=== PATIENT | female | born 1970 | race American Indian/Alaskan Native ===

== ENCOUNTER 2018-10-14 09:53 | Emergency (ER) | payer BC, OTHER ==
[2018-10-14 10:57] LABS: CHLORIDE,CL 103 mmol/L (98-107); SODIUM,NA 138 mmol/L (136-145)
--- NOTE | 2018-10-14 11:30 | EDM.PDOC ---
ED HPI GENERAL MEDICAL PROBLEM - General Chief Complaint: General Stated Complaint: INFECTION IN MOUTH Time Seen by Provider: 10/14/18 10:07 Source of Information: Reports: Patient History Limitations: Reports: No Limitations - History of Present Illness INITIAL COMMENTS - FREE TEXT/NARRATIVE: HISTORY AND PHYSICAL: History of present illness: Patient is a 48-year-old female who presents to the ED today with concern of dental abscess that has not gone away despite antibiotics and tooth removal. Patient states that she had her tooth pulled a few days ago and was given clindamycin antibiotic which she has been taking appropriately. Patient states she has noticed the swelling has increased and become more painful and has not improved despite pulling of the tooth and antibiotics. Patient states she sees a dentist in [place] and had the tooth pulled on Monday. Patient rates her discomfort a 6 out of 10. Patient denies fever, chills, chest pain, shortness of breath, or cough. Denies headache, neck stiff ness, change in vision, syncope, or near syncope. Denies nausea, vomiting, abdominal pain, diarrhea, constipation, or dysuria. Has not noted any blood in urine or stool. Patient has been eating and drinking appropriately. Review of systems: As per history of present illness and below otherwise all systems reviewed and negative. Past medical history: As per history of present illness and as reviewed below otherwise noncontributory. Surgical history: As per history of present illness and as reviewed below otherwise noncontributory. Social history: See social history for further information Family history: As per history of present illness and as reviewed below otherwise noncontributory. Physical exam: General: Patient is alert, oriented, and in no acute distress. Patient sitting comfortably on exam table. HEENT: Atraumatic, normocephalic, pupils equal and reactive bilaterally, negative for conjunctival pallor or scleral icterus, mucous membranes moist, TMs normal bilaterally, throat clear, neck supple, nontender, trachea midline. No drooling or trismus noted. No meningeal signs. No hot potato voice noted. Patient is missing tooth #31. The mandible adjacent to this tooth is severely painful to palpation and is edematous and erythematous. Patient hesitant to open mouth so exam limited due to pain. Generalized poor dentition. Lungs: Clear to auscultation, breath sounds equal bilaterally, chest nontender. Heart: S1S2, regular rate and rhythm without overt murmur Abdomen: Soft, nondistended, nontender. Negative for masses or hepatosplenomegaly. Negative for costovertebral tenderness. Pelvis: Stable nontender. Genitourinary: Deferred. Rectal: Deferred. Skin: Intact, warm, dry. No lesions or rashes noted. Extremities: Atraumatic, negative for cords or calf pain. Neurovascular unremarkable. Neuro: Awake, alert, oriented. Cranial nerves II through XII unremarkable. Cerebellum unremarkable. Motor and sensory unremarkable throughout. Exam nonfocal. Notes: Dr. Anderson directly involved in patient care. Patient has only had a few doses of Clindamycin since tooth removal. Because of this, will not switch antibiotic at this time as she has not had much time for antibiotic to work yet. Discussed the importance for follow-up with primary care provider for repeat lab work. Voices understanding and is agreeable to plan of care. Denies any further questions or concerns at this time. Diagnostics: CBC, CMP, UA, Uhcg, maxillofacial CT Therapeutics: insulin, rocephin, dental balls Prescription: None Impression: Dental abscess h/o type 2 diabetes with elevated glucose Anemia, unspecified Plan: 1. Continue your priorly prescribed medication as written. 2. Tylenol and/or ibuprofen as directed and as needed for pain management. 3. "Tooth Balls" have been given to you; apply along the gumline every 2-3 hours as needed. Do not swallow these; external use only. 4. Follow-up with a dentist for definitive care. Follow up with her primary care provider for repeat lab work as discussed. Return to the ED as needed and as discussed. Definitive disposition and diagnosis as appropriate pending reevaluation and review of above. right jaw Pain Score (Numeric/FACES): 7 - Related Data Allergies Allergy/AdvReac Type Severity Reaction Status Date / Time No Known Allergies Allergy Verified 10/14/18 10:09 Home Meds: Home Meds Bipolar Medication 1 tab PO ASDIRECTED 10/14/18 [History] Clindamycin HCl 1 tab PO ASDIRECTED 10/14/18 [History] Past Medical History HEENT History: Reports: None Cardiovascular History: Reports: None Respiratory History: Reports: None Gastrointestinal History: Reports: None Genitourinary History: Reports: None [employer]GER History: Reports: None Musculoskeletal History: Reports: None Neurological History: Reports: None Psychiatric History: Reports: Bipolar Endocrine/Metabolic History: Reports: Diabetes, Type II Hematologic History: Reports: None Immunologic History: Reports: None Oncologic (Cancer) History: Reports: None Dermatologic History: Reports: None - Past Surgical History Head Surgeries/Procedures: Reports: None HEENT Surgical History: Reports: None Cardiovascular Surgical History: Reports: None Respiratory Surgical History: Reports: None GI Surgical History: Reports: None Female Surgical History: Reports: Tubal Ligation Endocrine Surgical History: Reports: None Neurological Surgical History: Reports: None Musculoskeletal Surgical History: Reports: None Oncologic Surgical History: Reports: None Dermatological Surgical History: Reports: None Social & Family History - Family History Family Medical History: Noncontributory - Tobacco Use Smoking Status *Q: Current Every Day Smoker Years of Tobacco use: 20 Packs/Tins Daily: 1 - Caffeine Use Caffeine Use: Reports: Soda - Recreational Drug Use Recreational Drug Use: No ED ROS GENERAL - Review of Systems Review Of Systems: ROS reveals no pertinent complaints other than HPI. ED EXAM, GENERAL - Physical Exam Exam: See Below (See dictation) Course - Vital Signs Last Recorded V/S: Last Vital Signs Temp 36.4 C 10/14/18 10:07 Pulse 118 H 10/14/18 10:07 Resp 18 10/14/18 10:07 BP 141/96 H 10/14/18 10:07 Pulse Ox 98 10/14/18 10:07 - Orders/Labs/Meds Labs: Laboratory Tests 10/14/18 10/14/18 10/14/18 Range/Units 10:27 10:27 11:00 WBC 11.61 H (4.0-11.0) K/uL RBC 5.31 (4.30-5.90) M/uL Hgb 10.3 L (12.0-16.0) g/dL Hct 35.9 L (36.0-46.0) % MCV 67.6 L (80.0-98.0) fL MCH 19.4 L (27.0-32.0) pg MCHC 28.7 L (31.0-37.0) g/dL RDW Std Deviation 41.3 (28.0-62.0) fl RDW Coeff of Sofia 17 H (11.0-15.0) % Plt Count 262 (150-400) K/uL MPV 10.00 (7.40-12.00) fL Neut % (Auto) 80.8 H (48.0-80.0) % Lymph % (Auto) 11.8 L (16.0-40.0) % Blount % (Auto) 6.2 (0.0-15.0) % Eos % (Auto) 0.9 (0.0-7.0) % Baso % (Auto) 0.3 (0.0-1.5) % Neut # (Auto) 9.4 H (1.4-5.7) K/uL Lymph # (Auto) 1.4 (0.6-2.4) K/uL Blount # (Auto) 0.7 (0.0-0.8) K/uL Eos # (Auto) 0.1 (0.0-0.7) K/uL Baso # (Auto) 0.0 (0.0-0.1) K/uL Nucleated RBC % 0.0 /100WBC Nucleated RBCs # 0 K/uL Sodium 138 (136-145) mmol/L Potassium 3.7 (3.5-5.1) mmol/L Chloride 103 (98-107) mmol/L Carbon Dioxide 20.5 L (21.0-32.0) mmol/L BUN 10 (7.0-18.0) mg/dL Creatinine 0.6 (0.6-1.0) mg/dL Est Cr Clr Drug Dosing 93.82 mL/min Estimated GFR (MDRD) > 60.0 ml/min Glucose 300 H (74-106) mg/dL Calcium 9.6 (8.5-10.1) mg/dL Total Bilirubin 0.7 (0.2-1.0) mg/dL AST 5 L (15-37) IU/L ALT 15 (14-63) IU/L Alkaline Phosphatase 118 H (46-116) U/L Total Protein 8.4 H (6.4-8.2) g/dL Albumin 3.5 (3.4-5.0) g/dL Globulin 4.9 H (2.6-4.0) g/dL Albumin/Globulin Ratio 0.7 L (0.9-1.6) Urine Color YELLOW Urine Appearance CLEAR Urine pH 6.0 (5.0-8.0) Ur Specific [place] >= 1.030 (1.001-1.035) Urine Protein 100 H (NEGATIVE) mg/dL Urine Glucose (UA) 500 H (NEGATIVE) mg/dL Urine Ketones >=80 (NEGATIVE) mg/dL Urine Occult Blood LARGE H (NEGATIVE) Urine Nitrite NEGATIVE (NEGATIVE) Urine Bilirubin SMALL H (NEGATIVE) Urine Ictotest NEGATIVE Urine Urobilinogen 0.2 (<2.0) EU/dL Ur Leukocyte Esterase NEGATIVE (NEGATIVE) Urine RBC 4-6 (0-2/HPF) Urine WBC 2-4 (0-5/HPF) Ur Epithelial Cells MODERATE (NONE-FEW) Urine Bacteria FEW (NEGATIVE) Urine HCG, Qual (NEGATIVE) 10/14/18 Range/Units 11:00 WBC (4.0-11.0) K/uL RBC (4.30-5.90) M/uL Hgb (12.0-16.0) g/dL Hct (36.0-46.0) % MCV (80.0-98.0) fL MCH (27.0-32.0) pg MCHC (31.0-37.0) g/dL RDW Std Deviation (28.0-62.0) fl RDW Coeff of Sofia (11.0-15.0) % Plt Count (150-400) K/uL MPV (7.40-12.00) fL Neut % (Auto) (48.0-80.0) % Lymph % (Auto) (16.0-40.0) % Blount % (Auto) (0.0-15.0) % Eos % (Auto) (0.0-7.0) % Baso % (Auto) (0.0-1.5) % Neut # (Auto) (1.4-5.7) K/uL Lymph # (Auto) (0.6-2.4) K/uL Blount # (Auto) (0.0-0.8) K/uL Eos # (Auto) (0.0-0.7) K/uL Baso # (Auto) (0.0-0.1) K/uL Nucleated RBC % /100WBC Nucleated RBCs # K/uL Sodium (136-145) mmol/L Potassium (3.5-5.1) mmol/L Chloride (98-107) mmol/L Carbon Dioxide (21.0-32.0) mmol/L BUN (7.0-18.0) mg/dL Creatinine (0.6-1.0) mg/dL Est Cr Clr Drug Dosing mL/min Estimated GFR (MDRD) ml/min Glucose (74-106) mg/dL Calcium (8.5-10.1) mg/dL Total Bilirubin (0.2-1.0) mg/dL AST (15-37) IU/L ALT (14-63) IU/L Alkaline Phosphatase (46-116) U/L Total Protein (6.4-8.2) g/dL Albumin (3.4-5.0) g/dL Globulin (2.6-4.0) g/dL Albumin/Globulin Ratio (0.9-1.6) Urine Color Urine Appearance Urine pH (5.0-8.0) Ur Specific [place] (1.001-1.035) Urine Protein (NEGATIVE) mg/dL Urine Glucose (UA) (NEGATIVE) mg/dL Urine Ketones (NEGATIVE) mg/dL Urine Occult Blood (NEGATIVE) Urine Nitrite (NEGATIVE) Urine Bilirubin (NEGATIVE) Urine Ictotest Urine Urobilinogen (<2.0) EU/dL Ur Leukocyte Esterase (NEGATIVE) Urine RBC (0-2/HPF) Urine WBC (0-5/HPF) Ur Epithelial Cells (NONE-FEW) Urine Bacteria (NEGATIVE) Urine HCG, Qual NEGATIVE (NEGATIVE) Meds: Medications Discontinued Medications Generic Name Dose Route Start Last Admin Trade Name Leatha PRN Reason Stop Dose Admin Ceftriaxone Sodium 1 gm 10/14/18 11:34 10/14/18 11:56 Rocephin IM 10/14/18 11:35 1 gm ONETIME ONE Administration Lidocaine HCl Confirm 10/14/18 11:44 10/14/18 11:57 Xylocaine-Mpf 1% Administered 10/14/18 11:45 2.1 mls/hr Dose Administration 2 mls @ as directed .ROUTE .STK-MED ONE Insulin Human Regular 4 unit 10/14/18 11:33 10/14/18 11:56 Novolin R SUBCUT 10/14/18 11:34 4 unit ONETIME ONE Administration Protocol Iopamidol 75 ml 10/14/18 11:36 10/14/18 11:37 Isovue Multipack-370 (76%) IVPUSH 10/14/18 11:37 75 ml ONETIME STA Administration Departure - Departure Time of Disposition: 12:07 Disposition: Home, Self-Care 01 Clinical Impression: Dental abscess, History of diabetes mellitus, type II Anemia Qualifiers: Anemia type: unspecified type Qualified Code(s): D64.9 - Anemia, unspecified - Discharge Information Referrals: PCP,Unknown [Primary Care Provider] - Forms: ED Department Discharge Additional Instructions: The following information is given to patients seen in the emergency department who are being discharged to home. This information is to outline your options for follow-up care. We provide all patients seen in our emergency department with a follow-up referral. The need for follow-up, as well as the timing and circumstances, are variable depending upon the specifics of your emergency department visit. If you don't have a primary care physician on staff, we will provide you with a referral. We always advise you to contact your personal physician following an emergency department visit to inform them of the circumstance of the visit and for follow-up with them and/or the need for any referrals to a consulting specialist. The emergency department will also refer you to a specialist when appropriate. This referral assures that you have the opportunity for follow-up care with a specialist. All of these measure are taken in an effort to provide you with optimal care, which includes your follow-up. Under all circumstances we always encourage you to contact your private physician who remains a resource for coordinating your care. When calling for follow-up care, please make the office aware that this follow-up is from your recent emergency room visit. If for any reason you are refused follow-up, please contact the [facility] Emergency Department at and asked to speak to the emergency department charge nurse. [facility] [address] [place] [id number] [address] 1. Continue your priorly prescribed medication as written. 2. Tylenol and/or ibuprofen as directed and as needed for pain management. 3. "Tooth Balls" have been given to you; apply along the gumline every 2-3 hours as needed. Do not swallow these; external use only. 4. Follow-up with a dentist for definitive care. Follow up with her primary care provider for repeat lab work as discussed. Return to the ED as needed and as discussed.
[2018-10-14] MEDS ORDERED: Insulin Regular, Human 100 Units/ML 10 ML Vial SUBCUT ONE (11:33)
[2018-10-14] MEDS ORDERED: cefTRIAXone 1 GM Vial IM ONE (11:34)
[2018-10-14] MEDS ORDERED: Iopamidol 755 MG/ML 500 ML Multipack Bottle IVPUSH STA (11:36)
[2018-10-14] MEDS ORDERED: Lidocaine 1% 2 ML ONE (11:44)
--- NOTE | 2018-10-14 12:00 | CT ---
INDICATION: Right facial pain and swelling. TECHNIQUE: CT maxillofacial with contrast (75 cc of Isovue 370). COMPARISON: None FINDINGS: Changes of recent extraction of a right posterior mandibular tooth (tooth number 30) are present with soft tissue swelling noted adjacent to this site both laterally and inferiorly. No loculated fluid collection is seen to suggest abscess. Edematous changes are noted lateral to the mandible are best seen on the axial images. Mild mucosal thickening/inflammatory change is present within the maxillary sinuses. Mildly prominent lymph nodes in the right neck appear reactive. IMPRESSION: 1. Recent right mandibular tooth extraction with adjacent soft tissue swelling and reactive lymphadenopathy. 2. No abscess or osteomyelitis is seen. Please note that all CT scans at this facility use dose modulation, iterative reconstruction, and/or weight-based dosing when appropriate to reduce radiation dose to as low as reasonably achievable. Dictated by Trevor Kovacs MD @ Oct 14 2018 11:49AM Signed by Dr. Trevor Kovacs @ Oct 14 2018 12:00PM
[2018-10-14] MEDS ORDERED: Benzocaine 20% Topical Spray UD MUCMEM ONE (12:05)
[2018-10-14] MEDS ORDERED: Lidocaine 2% Viscous Solution 15 ML Cup PO ONE (12:05)
== END 2018-10-14 12:54 | disposition home or self-care (01) ==
LOC: MW.ED 09:53
DX: K04.7 Periapical abscess without sinus (principal); E11.9 Type 2 diabetes mellitus without complications; D64.9 Anemia, unspecified; F17.210 Nicotine dependence, cigarettes, uncomplicated
CPT/HCPCS: 36415; 70487; 80053; 81001; 81025; 82962; 85025; 96372; 99284; A9270; J0696; J2001; Q9967; J1815-GY

== ENCOUNTER 2021-10-28 06:36 | Day surgery (SDC) | payer BC, OTHER ==
[2021-10-26 14:52] LABS: BLOOD UREA NITROGEN,BUN 6 mg/dL (7.0-18.0); CARBON DIOXIDE,CO2 19.6 mmol/L (21.0-32.0); CHLORIDE,CL 107 mmol/L (98-107); GLUCOSE RANDOM 103 mg/dL (74-106); POTASSIUM,K 4.3 mmol/L (3.5-5.1); SODIUM,NA 140 mmol/L (136-145)
[~2021-10-28 06:36] MED LIST: Lactated Ringers 1,000 ML IV SCH; Sodium Chloride 0.9% 10 ML Syringe FLUSH PRN; Sodium Chloride 0.9% 2.5 ML Syringe FLUSH PRN; Sodium Chloride 0.9% 20 ML SDV IV PRN; ceFAZolin 2 GM in Premix Bag 1 BAG IV ONE
[2021-10-28] MEDS ORDERED: fentaNYL 100 MCG/2 ML SDV IVPUSH PRN (07:07)
[2021-10-28] MEDS ORDERED: Metoclopramide 10 MG/2 ML SDV IVPUSH PRN (07:07)
[2021-10-28] MEDS ORDERED: Ondansetron 4 MG/2 ML SDV IVPUSH PRN ×2 (07:07→09:41)
[2021-10-28] MEDS ORDERED: Albuterol 0.083% 2.5 MG/3 ML Neb Soln NEB PRN (07:07)
[2021-10-28] MEDS ORDERED: Naloxone 0.4 MG/ML SDV IVPUSH PRN (07:07)
[2021-10-28] MEDS ORDERED: HYDROmorphone 1 MG/ML Syringe IVPUSH PRN (07:07)
[2021-10-28] MEDS ORDERED: Dexamethasone 4 MG/ML 5 ML MDV ONE (07:16)
[2021-10-28] MEDS ORDERED: Midazolam 1 MG/ML 2 ML SDV ONE (07:16)
[2021-10-28] MEDS ORDERED: Rocuronium 100 MG/10 ML MDV ONE (07:16)
[2021-10-28] MEDS ORDERED: Ketorolac 30 MG/ML SDV ONE (07:16)
[2021-10-28] MEDS ORDERED: Lidocaine 2% 5 ML SDV ONE (07:16)
[2021-10-28] MEDS ORDERED: Propofol 200 MG/20 ML SDV ONE (07:16)
[2021-10-28] MEDS ORDERED: Sugammadex Sodium 200 MG/2 ML VIAL ONE (07:16)
[2021-10-28] MEDS ORDERED: Octyl 2-Cyanoacrylate 1 Tube ONE (07:27)
[2021-10-28] MEDS ORDERED: Fluorescein 5 ML Vial ONE (07:27)
[2021-10-28] MEDS ORDERED: ePHEDrine 50 MG/ML SDV ONE (08:07)
[2021-10-28] MEDS ORDERED: Water For Injection, Sterile 20 ML ONE (08:07)
[2021-10-28] MEDS ORDERED: fentaNYL 100 MCG/2 ML SDV ONE (08:49)
[2021-10-28] MEDS ORDERED: Morphine 4 MG/ML VIAL IVPUSH PRN (09:41)
[2021-10-28] MEDS ORDERED: Promethazine 25 MG/ML SDV IM PRN (09:41)
[2021-10-28] MEDS ORDERED: Acetaminophen/oxyCODONE 325-5 MG Tab PO PRN ×2 (09:41)
[2021-10-28] MEDS ORDERED: Ketorolac 30 MG/ML SDV IVPUSH ONE (09:41)
[2021-10-28] MEDS ORDERED: Ketorolac 30 MG/ML SDV IVPUSH PRN (16:00)
[2021-10-28] MEDS: ZIPRASIDONE HCL 20 MG PO SCH (21:21)
[2021-10-29 08:29] LABS: BLOOD UREA NITROGEN,BUN 12 mg/dL (7.0-18.0); CHLORIDE,CL 104 mmol/L (98-107); GLUCOSE RANDOM 104 mg/dL (74-106); POTASSIUM,K 3.8 mmol/L (3.5-5.1); SODIUM,NA 134 mmol/L (136-145)
[2021-10-29] MEDS: ZIPRASIDONE HCL 20 MG PO SCH (08:50)
== END 2021-10-29 09:55 | disposition home or self-care (01) ==
LOC: MW.SDS 06:36 → MW.MS 10:51 → MW.SDS 10-29 09:55
PROVIDERS: ATTEND Obstetrics & Gynecology
DX: D25.0 Submucous leiomyoma of uterus (principal); D25.1 Intramural leiomyoma of uterus; D26.1 Other benign neoplasm of corpus uteri; N80.0 Endometriosis of uterus; F17.210 Nicotine dependence, cigarettes, uncomplicated; I10 Essential (primary) hypertension; E11.9 Type 2 diabetes mellitus without complications; E66.9 Obesity, unspecified; Z79.84 Long term (current) use of oral hypoglycemic drugs; Z79.899 Other long term (current) drug therapy; Z88.5 Allergy status to narcotic agent; Z98.890 Other specified postprocedural states
CPT/HCPCS: 36415; 58571; 80048; 82947; 84703; 85025; 85027; 86850; 86900; 86901; A9270; J0131; J0690; J1100; J1170; J1885; J2250; J2704; J3010; J3490; J7030; J7120; 00840

== ENCOUNTER 2022-06-08 15:31 | Inpatient (IN) | payer BC, OTHER ==
[2022-06-08] MEDS ORDERED: fentaNYL 50 MCG/ML SDV IVPUSH ONE (18:37)
[2022-06-08 19:32] LABS: CARBON DIOXIDE,CO2 19.1 mmol/L (21.0-32.0); POTASSIUM,K 4.3 mmol/L (3.5-5.1)
[2022-06-08] MEDS ORDERED: Sodium Chloride 0.9% 1,000 ML IV ONE (20:20)
[2022-06-08 20:36] LABS: CORONAVIRUS COVID-19 NAA NEGATIVE (NEGATIVE); INFLUENZA A NAA NEGATIVE (NEGATIVE); INFLUENZA B NAA NEGATIVE (NEGATIVE)
[2022-06-08] MEDS ORDERED: Calcium Carbonate 500 MG Tab.Chew CHEW PRN (21:01)
[2022-06-08] MEDS ORDERED: 50% Dextrose in Water 50 ML Syringe IVPUSH PRN (21:19)
[2022-06-08] MEDS ORDERED: Glucagon,Human Recombinant 1 MG Vial IM PRN (21:19)
[2022-06-08] MEDS ORDERED: fentaNYL 50 MCG/ML SDV IVPUSH SCH (21:30)
[2022-06-08] MEDS: Ziprasidone HCl 20 MG Cap PO SCH (23:04)
[2022-06-08] MEDS: Heparin Sodium 5,000 Units/ML Vial SUBCUT SCH (23:05)
[2022-06-08] MEDS: fentaNYL 50 MCG/ML SDV IVPUSH PRN (23:30)
[2022-06-09] MEDS: fentaNYL 50 MCG/ML SDV IVPUSH PRN (01:32)
[2022-06-09] MEDS: Ibuprofen 400 MG Tab PO PRN ×2 (04:57→16:43)
[2022-06-09] MEDS: Heparin Sodium 5,000 Units/ML Vial SUBCUT SCH ×3 (06:15→21:18)
[2022-06-09 07:42] LABS: CARBON DIOXIDE,CO2 18.4 mmol/L (21.0-32.0); POTASSIUM,K 3.7 mmol/L (3.5-5.1)
[2022-06-09] MEDS: Insulin Aspart 100 Units/ML 3 ML Pen SUBCUT SCH ×3 (07:44→16:52)
[2022-06-09] MEDS ORDERED: Polyethylene Glycol 3350 Powder 17 GM Packet PO PRN (07:59)
[2022-06-09] MEDS ORDERED: Docusate Sodium 100 MG Cap PO PRN (08:00)
[2022-06-09] MEDS ORDERED: Lisinopril 10 MG Tab PO SCH (09:00)
[2022-06-09] MEDS: Nicotine 7 MG/24 Hr Patch TRDERM SCH (10:00)
[2022-06-09] MEDS: Ferrous Sulfate 325 MG Tab PO SCH (10:01)
[2022-06-09] MEDS: Ziprasidone HCl 20 MG Cap PO SCH ×2 (10:02→21:18)
[2022-06-09] MEDS: oxyCODONE 5 MG Tab PO PRN ×2 (12:03→18:04)
[2022-06-10] MEDS: fentaNYL 50 MCG/ML SDV IVPUSH PRN ×2 (04:14→09:11)
[2022-06-10 07:21] LABS: CARBON DIOXIDE,CO2 20.2 mmol/L (21.0-32.0); POTASSIUM,K 4.2 mmol/L (3.5-5.1)
[2022-06-10] MEDS ORDERED: Magnesium Sulfate/Water 2 GM in Premix Bag 1 BAG IV ONE (07:52)
[2022-06-10] MEDS: Lactated Ringers 1,000 ML IV SCH ×2 (08:17→18:36)
[2022-06-10] MEDS: Ferrous Sulfate 325 MG Tab PO SCH (08:19)
[2022-06-10] MEDS: Ziprasidone HCl 20 MG Cap PO SCH ×2 (08:19→21:01)
[2022-06-10] MEDS: Insulin Aspart 100 Units/ML 3 ML Pen SUBCUT SCH ×3 (08:19→16:54)
[2022-06-10] MEDS: Nicotine 7 MG/24 Hr Patch TRDERM SCH (08:19)
[2022-06-10] MEDS ORDERED: Tranexamic Acid 1,000 MG in Sodium Chloride 0.9% 100 ML IV ONE (12:00)
[2022-06-10] MEDS ORDERED: Ropivacaine 49.25 ML, Ketorolac 30 MG, EPINEPHrine 0.5 MG, cloNIDine 80 MCG in Sodium C... INJECT SCH (12:00)
[2022-06-10] MEDS ORDERED: HYDROmorphone 1 MG/ML Syringe IVPUSH PRN (12:29)
[2022-06-10] MEDS ORDERED: Naloxone 0.4 MG/ML SDV IVPUSH PRN (12:29)
[2022-06-10] MEDS ORDERED: Ondansetron 4 MG/2 ML SDV IVPUSH PRN (12:29)
[2022-06-10] MEDS ORDERED: Metoclopramide 10 MG/2 ML SDV IVPUSH PRN (12:29)
[2022-06-10] MEDS ORDERED: Albuterol 0.083% 2.5 MG/3 ML Neb Soln NEB PRN (12:29)
[2022-06-10] MEDS ORDERED: fentaNYL 50 MCG/ML SDV IVPUSH PRN (12:29)
[2022-06-10] MEDS ORDERED: Dexmedetomidine 200 MCG/2 ML SDV ONE (12:37)
[2022-06-10] MEDS ORDERED: fentaNYL 100 MCG/2 ML SDV ONE (12:37)
[2022-06-10] MEDS ORDERED: propofoL 100 ML ONE (12:41)
[2022-06-10] MEDS ORDERED: ceFAZolin 2 GM in Premix Bag 1 BAG IV SCH (13:00)
[2022-06-10] MEDS ORDERED: ceFAZolin 2 GM Vial ONE (13:37)
[2022-06-10] MEDS ORDERED: Tranexamic Acid 1,000 MG/10 ML Vial ONE (13:44)
[2022-06-10] MEDS ORDERED: Phenylephrine 1% 10 MG/ML SDV ONE (13:48)
[2022-06-10] MEDS ORDERED: traMADol 50 MG Tab PO PRN ×3 (15:15→16:18)
[2022-06-10] MEDS ORDERED: diphenhydrAMINE 25 MG Cap PO PRN (15:15)
[2022-06-10] MEDS: Acetaminophen 325 MG Tab PO SCH ×2 (17:11→20:58)
[2022-06-10] MEDS: ceFAZolin 2 GM in Premix Bag 1 BAG IV SCH (20:57)
[2022-06-10] MEDS: Aspirin 325 MG Tab PO SCH (20:58)
[2022-06-10] MEDS: Ibuprofen 400 MG Tab PO PRN (20:59)
[2022-06-11] MEDS: Acetaminophen 325 MG Tab PO SCH ×5 (00:59→19:01)
[2022-06-11] MEDS: oxyCODONE 5 MG Tab PO PRN (05:06)
[2022-06-11] MEDS: ceFAZolin 2 GM in Premix Bag 1 BAG IV SCH (05:06)
[2022-06-11 07:44] LABS: CARBON DIOXIDE,CO2 23.9 mmol/L (21.0-32.0); POTASSIUM,K 4.2 mmol/L (3.5-5.1)
[2022-06-11] MEDS: Insulin Aspart 100 Units/ML 3 ML Pen SUBCUT SCH ×3 (08:44→19:01)
[2022-06-11] MEDS: Aspirin 325 MG Tab PO SCH (08:45)
[2022-06-11] MEDS: Nicotine 7 MG/24 Hr Patch TRDERM SCH (08:46)
[2022-06-11] MEDS: Ferrous Sulfate 325 MG Tab PO SCH (08:48)
[2022-06-11] MEDS: Ziprasidone HCl 20 MG Cap PO SCH (08:57)
[2022-06-11] MEDS ORDERED: Magnesium Sulfate/Water 2 GM/50 ML Premix Bag IV ONE (13:19)
[2022-06-11] MEDS ORDERED: Magnesium Sulfate/Water 2 GM in Premix Bag 1 BAG IV ONE (13:45)
== END 2022-06-11 17:45 | disposition home or self-care (01) | DRG 308 ==
LOC: MW.ED 15:31 → MW.MS 19:19
PROVIDERS: ADMIT Internal Medicine; ATTEND Internal Medicine
PROC: 0QS734Z Reposition Left Upper Femur with Internal Fixation Device, Percutaneous Approach (ICD-10-PCS; principal; 2022-06-10)
DX: S72.141A Displaced intertrochanteric fracture of right femur, initial encounter for closed fracture (principal); F31.9 Bipolar disorder, unspecified; E11.9 Type 2 diabetes mellitus without complications; I10 Essential (primary) hypertension; K21.9 Gastro-esophageal reflux disease without esophagitis; F41.9 Anxiety disorder, unspecified; E66.9 Obesity, unspecified; D64.9 Anemia, unspecified; F17.200 Nicotine dependence, unspecified, uncomplicated; Z20.822 Contact with and (suspected) exposure to COVID-19; Z79.899 Other long term (current) drug therapy; Z90.710 Acquired absence of both cervix and uterus; Z68.32 Body mass index [BMI] 32.0-32.9, adult; Z88.5 Allergy status to narcotic agent; W00.0XXA Fall on same level due to ice and snow, initial encounter
CPT/HCPCS: 01230; 0240U; 36415; 71045; 71045-26; 72170; 72170-26; 73552-26-LT; 73552-LT; 80048; 80053; 82947; 83735; 85014; 85018; 85025; 85610; 86850; 86900; 86901; 93005; 93010; 96361; 96374; 97110-GP; 97161-GP; 97530-GP; 99221; 99231; 99232; 99238; 99285; 99285-25; A9270-GY; C1713; C1769; J0690; J1644; J1815-GY; J2370; J2704; J3010; J3475; J3490; J7030; J7120

== ENCOUNTER 2022-07-14 11:40 | Day surgery (SDC) | payer BC, OTHER ==
[~2022-07-14 11:40] MED LIST changes: +Albuterol 0.083% 2.5 MG/3 ML Neb Soln NEB PRN; +HYDROmorphone 1 MG/ML Syringe IVPUSH PRN; +Metoclopramide 10 MG/2 ML SDV IVPUSH PRN; +Morphine 2 MG/ML SYRINGE IVPUSH PRN; +Naloxone 0.4 MG/ML SDV IVPUSH PRN; +Ondansetron 4 MG/2 ML SDV IVPUSH PRN; +Scopolamine 1.5 MG Transdermal Patch TOP ONE; -Sodium Chloride 0.9% 10 ML Syringe FLUSH PRN; -Sodium Chloride 0.9% 2.5 ML Syringe FLUSH PRN; -Sodium Chloride 0.9% 20 ML SDV IV PRN; -ceFAZolin 2 GM in Premix Bag 1 BAG IV ONE; +fentaNYL 50 MCG/ML SDV IVPUSH PRN
[2022-07-14] MEDS ORDERED: Morphine 2 MG/ML SYRINGE IVPUSH PRN (12:07)
[2022-07-14] MEDS ORDERED: Scopolamine 1.5 MG Transdermal Patch ONE (12:39)
[2022-07-14] MEDS ORDERED: ceFAZolin 2 GM in Premix Bag 1 BAG IV SCH (13:30)
[2022-07-14] MEDS ORDERED: fentaNYL 100 MCG/2 ML SDV ONE (13:50)
[2022-07-14] MEDS ORDERED: Midazolam 1 MG/ML 2 ML SDV ONE (13:53)
[2022-07-14] MEDS ORDERED: Propofol 200 MG/20 ML SDV ONE ×2 (14:01→14:13)
[2022-07-14] MEDS ORDERED: Ondansetron 4 MG/2 ML SDV ONE ×2 (14:11→15:16)
[2022-07-14] MEDS ORDERED: Ketamine 500 mg/10 ML MDV ONE (14:11)
== END 2022-07-14 18:00 | disposition home or self-care (01) ==
LOC: MW.SDS 11:40 → MW.MS 11:48 → UNDOADMIN 11:48 → EDSTATUS 13:30 → MW.SDS 18:00
PROVIDERS: ATTEND Orthopaedic Surgery
DX: T84.020A Dislocation of internal right hip prosthesis, initial encounter (principal); F41.9 Anxiety disorder, unspecified; F31.9 Bipolar disorder, unspecified; D64.9 Anemia, unspecified; I10 Essential (primary) hypertension; F17.210 Nicotine dependence, cigarettes, uncomplicated; Z79.01 Long term (current) use of anticoagulants; Z79.899 Other long term (current) drug therapy; Z79.82 Long term (current) use of aspirin; Z79.84 Long term (current) use of oral hypoglycemic drugs; Z88.6 Allergy status to analgesic agent; Z98.890 Other specified postprocedural states
CPT/HCPCS: 27245; 76000; 82947; A9270; C1713; C1769; J0131; J2250; J2405; J2704; J3010; J3490; J7120

== ENCOUNTER 2025-01-04 10:16 | Emergency (ER) | payer BC, OTHER ==
[2025-01-04 10:42] LABS: BASOPHILS ABSOLUTE AUTO 0.05 K/uL (0.00-0.20); BASOPHILS PERCENT AUTO 0.5 % (0.0-1.0); EOSINOPHILS ABSOLUTE AUTO 0.18 K/uL (0.00-0.45); EOSINOPHILS PERCENT AUTO 2.0 % (0.0-6.0); IMMATURE GRAN ABSOLUTE AUTO 0.03 K/uL (0.00-0.05); IMMATURE GRAN PERCENT AUTO 0.3 % (0.0-0.4); LYMPHOCYTES ABSOLUTE AUTO 1.75 K/uL (1.00-4.80); LYMPHOCYTES PERCENT AUTO 19.2 % (24.0-44.0); MEAN PLATELET VOLUME 10.2 fL (9.4-12.3); MONOCYTES ABSOLUTE AUTO 0.45 K/uL (0.00-0.80); MONOCYTES PERCENT AUTO 4.9 % (0.0-8.0); NEUTROPHILS ABSOLUTE AUTO 6.66 K/uL (1.80-7.70); NEUTROPHILS PERCENT AUTO 73.1 % (41.0-71.0); NRBC ABSOLUTE 0.00 K/uL (0.00-0.02); NRBC PERCENT 0.0 /100WBC (0.0-0.2); PLATELET COUNT,PLT 289 K/uL (150-400); RED BLOOD CELL COUNT 5.12 M/uL (4.10-5.30); WHITE BLOOD CELL COUNT,WBC 9.12 K/uL (3.9-11.3)
[2025-01-04 10:57] LABS: BLOOD UREA NITROGEN,BUN 14.0 mg/dL (7.0-18.0); CHLORIDE,CL 105.0 mmol/L (98-107); CREATININE 1.1 mg/dL (0.6-1.0); EST CRCL DRUG DOSING (CG) 47.8 mL/min; GLUCOSE RANDOM 219.0 mg/dL (74-106); POTASSIUM,K 4.7 mmol/L (3.5-5.1); SODIUM,NA 136.0 mmol/L (136-145)
[2025-01-04 11:15] LABS: ESTIMATED GFR 59.0 mL/min (>60)
[2025-01-04 11:26] LABS: CARBON DIOXIDE,CO2 18.0 mmol/L (21.0-32.0)
[2025-01-04 11:34] LABS: PHOSPHORUS 2.8 mg/dL (2.6-4.7)
[2025-01-04] MEDS: Magnesium Sulfate (4.06 MEQ/ML) 5 GM/10 ML SDV IV ONE (11:43)
[2025-01-04] MEDS: Magnesium Sulfate 2 GM/50 mL 2 GM in Premix Bag 1 BAG IV SCH (11:43)
[2025-01-04] MEDS: Magnesium Sulfate 2 GM/50 mL 2 GM in Premix Bag 1 BAG IV STA (11:49)
== END 2025-01-04 12:27 | disposition home or self-care (01) ==
LOC: MW.ED 10:16
DX: R07.9 Chest pain, unspecified (principal); E83.42 Hypomagnesemia
CPT/HCPCS: 36415; 71045; 80048; 83735; 84100; 84484; 85025; 85379; 93005; 96365; 99285; A9270; J3475